=== PATIENT | male | born 1995 | race Caucasian/White ===

== ENCOUNTER 2022-03-09 21:39 | Emergency (ER) | payer BC ==
--- NOTE | 2022-03-09 22:43 | ERPHSYRPT ---
- History of Present Illness Time Seen by Provider: 03/09/22 22:43 Source: patient Exam Limitations: no limitations Patient Subjective Stated Complaint: PT STATES HE WAS MOVIING OFFICE FURNITURE AND STATED HE HEARD A POP IN HIS LOWER BACK. pT STATES R LEG IS TINGLING AND P AINFUL. PT STATES A SHOOTING PAIN IS FELT IN LOW BACVK AND LEG IF HE MOVES Triage Nursing Assessment: PT ALERT AND ORIENTED, ANSWERS QUESTIONS APPROPRIATLY. PT STATES HIS PAIN IN 05/11, PT IS SITTING UP IN WHEELCHAIR AND STATES HE CANNOT LAY IN THE BED Physician History: The patient is a 26-year-old male with a past medical history significant for herniated lumbar disks and prior episodes of low back pain with sciatica presents with a chief complaint of low back pain. Onset reportedly was today. He apparently had been moving some furniture around for his . The pain is described as a sharp pain that is described as a spasm as well located mainly to the mid back and right paralumbar spinous region that radiates down the posterior aspect of the right leg to the calf. This is consistent with prior episodes of sciatica in the past. He apparently is been dealing with low back pain since he was a teenager and currently does not follow with PT or anybody in terms of a back specialist for his pain. He denies fever, chills, recent trauma, history of immunosuppression to include HIV, history of TB, unpurposeful weight loss, night sweats, anticoagulation use, numbness of in his perineum, bladder or bowel incontinence. He was accompanied by his . He apparently has been taken Tylenol ibuprofen for the pain with no relief. Allergies/Adverse Reactions: Penicillins Allergy (Verified 03/09/22 22:26) Hx Tetanus, Diphtheria Vaccination/Date Given: No Travel Risk - International Travel Have you traveled outside of the country in past 3 weeks: No - Coronavirus Screening Are you exhibiting any of the following symptoms?: No Close contact with a COVID-19 positive Pt in past 14-21 Days: No - Vaccine Status Have you recieved a Covid-19 vaccination: Yes [employer]: [employer] - Review of Systems Musculoskeletal: Back Pain Neurological: Other (Pain radiating down posterior aspect of R leg) - Past Medical History Cardiac History: Hypertension Musculoskeletal History: Other Other Medical History: BULGING DISCS AND SCIATICA - Past Surgical History Past Surgical History: Yes Other Surgical History: EAR SURGERY CAULIFLOWER EAR - Social History Smoking Status: Never smoker Drug Use: none - Nursing Vital Signs Nursing Vital Signs: Initial Vital Signs Temperature 97.7 F 03/09/22 22:16 Pulse Rate 80 03/09/22 22:16 Respiratory Rate 18 03/09/22 22:16 Blood Pressure 180/87 03/09/22 22:16 O2 Sat by Pulse Oximetry 95 03/09/22 22:16 Pain Scale Pain Intensity 8 - Physical Exam General Appearance: other (The patient appeared to be uncomfortable and was sitting in a wheelchair and having difficulty standing because of the pain. He eventually was able to move over to the bed.) Eye Exam: No scleral icterus Neck Exam: normal inspection, non-tender, supple Respiratory Exam: normal breath sounds, lungs clear, airway intact, No chest tenderness, No respiratory distress Cardiovascular Exam: regular rate/rhythm, normal heart sounds, normal peripheral pulses, capillary refill <2 sec, No murmur, No friction rub Gastrointestinal/Abdomen Exam: soft Back Exam: normal inspection, muscle spasm, other (The patient had tenderness to the right para lumbar spinous region. There is no significant midline spine tenderness, crepitus or step-offs.) Extremity Exam: other (ID flexion 5 out of 5 bilaterally, dorsi flexion and plantar flexion 5 out of 5 bilaterally.) Neurologic Exam: alert, oriented x 3, cooperative, other (Sensation intact and equal in the L4, L5 and S1 to reduce the patient, no ankle clonus, patellar reflex 2+ bilaterally, straight leg test was positive on the right), No sensory deficit Skin Exam: normal color, warm, dry, No rash, No petechiae SpO2: 95 - Course Nursing assessment & vital signs reviewed: Yes Ordered Tests: Active Orders 24 hr Category Date Time Status Pulse Oximetry (ED) STAT Care 03/09/22 23:00 Completed Medication Summary Discontinued Medications Generic Name Dose Route Start Last Admin Trade Name Seanq PRN Reason Stop Dose Admin Hydromorphone HCl 1 mg 03/09/22 22:59 03/09/22 23:07 Hydromorphone 1 Mg/1ml Inj 1 Mg/Ml Syringe SQ 03/09/22 23:00 1 mg STAT ONE Administration Hydromorphone HCl Confirm 03/09/22 23:05 Hydromorphone 1 Mg/1ml Inj 1 Mg/Ml Syringe Administered 03/09/22 23:06 Dose 1 mg .ROUTE .STK-MED ONE Ketorolac Tromethamine 30 mg 03/09/22 22:59 03/09/22 23:07 Ketorolac Tromethamine 30 Mg/Ml Inj IM 03/09/22 23:00 30 mg STAT ONE Administration Ketorolac Tromethamine Confirm 03/09/22 23:04 Ketorolac Tromethamine 30 Mg/Ml Inj Administered 03/09/22 23:05 Dose 30 mg .ROUTE .STK-MED ONE Lidocaine 1 patch 03/09/22 23:00 03/09/22 23:27 Lidocaine Hcl 1 Patch Patch TOP 03/09/22 23:01 1 patch STAT STA Administration Oxycodone/Acetaminophen 1 tab 03/09/22 22:59 03/09/22 23:07 Oxycodone Hcl/Apap 5 Mg/325 Mg Tablet PO 03/09/22 23:00 1 tab STAT STA Administration Oxycodone/Acetaminophen Confirm 03/09/22 23:05 Oxycodone Hcl/Apap 5 Mg/325 Mg Tablet Administered 03/09/22 23:06 Dose 1 tab .ROUTE .STK-MED ONE - Progress Progress: improved Progress Note: 03/10/22 00:10 Patient is reassessed to find his pain is now down to a 4 out of 10 and initially was a 10 and a 10 on arrival. He wants to try to sit up and see if he can ambulate to make sure his pain is actually controlled and if he can do this without too much difficulty he is comfortable with going home. 03/10/22 01:31 Nontoxic appearance. The patient presents with low back pain with right sciatica likely secondary to a lumbar herniated disc. My suspicion for cauda equina syndrome, spinal epidural abscess, spinal hematoma, vertebral osteomyelitis, fracture, conus medullary syndrome and malignancy is low at this time. Did not feel imaging was warranted and I did not feel the patient warranted emergent MRI at this time. His pain was treated conservatively and he ultimately was discharged home with instruction to follow-up with his PCP to arrange outpatient PT for further evaluation and management. ED return precautions for back pain was given. He was also given a work excuse and instructed to refrain from lifting any objects heavier than a gallon of milk until his pain has improved. Counseled pt/family regarding: diagnosis, need for follow-up - Departure Departure Disposition: Home Clinical Impression: Low back pain with right-sided sciatica Condition: Stable Critical Care Time: No Referrals: CHRISS MILNER [Primary Care Provider] - Follow up/PCP as directed Instructions: Low Back Pain (DC), Sciatica (DC) Additional Instructions: Do not lift anything heavier than a gallon of milk. Please follow-up with your primary care provider for further evaluation management and to be referred to physical therapy for further evaluation and management. Prescriptions: Hydrocodone/APAP 5/325 [[place] 5/325 mg] 1 - 2 each PO Q6H PRN PRN #10 tablet MDD 6 PRN Reason: Pain Lidocaine HCl 5% Patch [Lidoderm Patch 5%] 1 patch TOP DAILY #7 patch Naproxen 500 mg [Naprosyn 500 MG] 500 mg PO BID 5 Days #10 tablet
[2022-03-09] MEDS ORDERED: PERCOCET TABLET 5/325MG PO STA (22:59)
[2022-03-09] MEDS ORDERED: TORAdol 30 mg Injection IM ONE (22:59)
[2022-03-09] MEDS ORDERED: Hydromorphone 1 mg/ml Injection SQ ONE (22:59)
[2022-03-09] MEDS ORDERED: Lidoderm Patch 5% TOP STA (23:00)
[2022-03-09] MEDS ORDERED: TORAdol 30 mg Injection ONE (23:04)
[2022-03-09] MEDS ORDERED: PERCOCET TABLET 5/325MG ONE (23:05)
[2022-03-09] MEDS ORDERED: Hydromorphone 1 mg/ml Injection ONE (23:05)
[2022-03-10 00:04] VITALS: BP 135/99
[2022-03-10 00:55] VITALS: PULSE 89
[2022-03-10 01:33] VITALS: O2SAT 95
== END 2022-03-10 00:55 | disposition home or self-care (01) ==
LOC: ED 21:39
DX: M54.41 Lumbago with sciatica, right side (principal); X50.0XXA Overexertion from strenuous movement or load, initial encounter; I10 Essential (primary) hypertension; Z79.891 Long term (current) use of opiate analgesic
CPT/HCPCS: 94760; 96372; 99283; J1170; J1885; A9270-GY